=== PATIENT | female | born 1970 | race African-American/Black ===

== ENCOUNTER 2016-06-25 12:39 | Inpatient (IN) | payer MEDICARE, MEDICAID ==
[~2016-06-25] VITALS: Ht 160 cm; Wt 97.6 kg
[~2016-06-25 12:39] MED LIST: ACYC200C PO; CODE118S2 PO; COLC0.6T66 PO; FLUO-124 PO; OXYC-100 PO
[2016-06-25] MEDS ORDERED: IPRATROPIUM BROMIDE (0.02%) 0.5MG/2.5ML NEB HHN STA (13:41)
[2016-06-25] MEDS ORDERED: METHYLPREDNISOLONE SOD SUCC 125 MG/2 ML VIAL IV STA (13:41)
[2016-06-25] MEDS ORDERED: ALBUTEROL (0.083%) 2.5MG/3ML NEB HHN STA (13:41)
[2016-06-25] MEDS ORDERED: FUROSEMIDE 40MG/4ML VIAL IV STA (13:41)
[2016-06-25 14:08] LABS: BG BASE EXCESS -5.1 mmol/L (-2.0-2.0); BG CARBOXYHEMOGLOBIN 6.3 % (0.5-1.5); BG DEOXYHEMOGLOBIN 6.4 % (0.0-5.0); BG FRACTION INSPIRED OXYGEN 21; BG HCO3 ACT 18.3 mmol/L (22.0-26.0); BG METHEMOGLOBIN 0.1 % (0.0-1.5); BG OXYGEN SATURATION 93.2 % (92.0-98.5); BG OXYHEMOGLOBIN 87.2 % (94.0-97.0); BG PCO2 28.7 mmHg (35.0-45.0); BG PH 7.423 (7.350-7.450); BG PO2 66.8 mmHg (75.0-100.0); BG SAMPLE SITE RIGHT RADIAL; BG TOTAL HEMOGLOBIN 10.6 g/dL (12.0-18.0); BG VENT MODE ROOM AIR
[2016-06-25 14:27] LABS: ALBUMIN 3.7 g/dL (3.4-5.0); CALCIUM 8.7 mg/dL (8.5-10.1); CHLORIDE 101 mEq/L (98-107); INDEX HEMOLYSI 1 (1-3); INDEX ICTERIC 1 (1-4); INDEX LIPEMIC 1 (1-3)
[2016-06-25 14:30] LABS: INR 1.1; PARTIAL THROMBOPLASTIN TIME 27.1 sec (24.0-34.0); PROTHROMBIN TIME 11.3 sec
[2016-06-25 14:35] LABS: ALANINE AMINOTRANSFERASE 15 IU/L (13-61); ANION GAP 17; CARBON DIOXIDE 22 mEq/L (21-32); NT PRO B-TYPE NATRIURETIC PEP 48 pg/mL (5-125); TROPONIN I < 0.02 ng/mL (0.00-0.04); eGFR > 60 mL/min (>60)
[2016-06-25 14:39] LABS: UREA NITROGEN BLOOD 3 mg/dL (7-21)
[2016-06-25 14:40] LABS: LACTIC ACID 3.4 mmol/L (0.4-2.0)
[2016-06-25 14:46] LABS: BASOPHILS % 0.3 % (0.0-2.0); DIFFERENTIAL COMMENT 0; EOSINOPHILS % 0.7 % (0.0-5.0); HEMATOCRIT. 31.6 % (36.0-48.0); MEAN CORPUSCULAR HEMOGLOBIN 23.1 pg (28.0-32.0); MEAN CORPUSCULAR HGB CONC 31.8 g/dL (31.0-37.0); MEAN CORPUSCULAR VOLUME 72.8 fL (81.0-99.0); MEAN PLATELET VOLUME 7.9 fl (7.4-10.4); MONOCYTES % 3.7 % (2.0-8.0); NEUTROPHILS % 73.3 % (40.0-76.0); PLATELET 273 x1000/uL (130-400); RED BLOOD CELL COUNT 4.34 mill/uL (4.2-5.4); RED CELL DISTRIBUTION WIDTH 20.3 % (11.6-14.6); WHITE BLOOD COUNT 7.9 x1000/uL (4.5-11.0)
[2016-06-25] MEDS ORDERED: CEFTRIAXONE 1 G PREMIX 50 ML IV ONE (15:30)
[2016-06-25] MEDS ORDERED: AZITHROMYCIN 500 MG in DEXT 5% WATER 250 ML IV SCH (15:30)
[2016-06-25] MEDS ORDERED: AZITHROMYCIN 500MG in DEXTROSE 5% WATER 250ML IV NR (17:00)
[2016-06-25] MEDS ORDERED: KETOROLAC 30MG/ML VIAL IV ONE (19:45)
[2016-06-25] MEDS ORDERED: IPRATROPIUM/ALBUTEROL 0.5-3(2.5)MG/3ML NEB HHN PRN (21:30)
[2016-06-25] MEDS ORDERED: ONDANSETRON HCL 4MG/2ML VIAL IV PRN (21:30)
[2016-06-25] MEDS ORDERED: ACETAMINOPHEN 325MG TABLET PO PRN (21:30)
[2016-06-25] MEDS: LEVOFLOXACIN 500MG PREMIX 100 ML IV SCH (23:00)
[2016-06-25] MEDS: METHYLPREDNISOLONE SOD SUCC 40 MG/ML VIAL IV SCH (23:32)
[2016-06-26] MEDS: METHYLPREDNISOLONE SOD SUCC 40 MG/ML VIAL IV SCH ×4 (06:07→23:30)
[2016-06-26] MEDS: HYDROCODONE/ACETAMINOPHEN 5/325MG TABLET PO PRN ×2 (06:12→21:48)
[2016-06-26 06:34] LABS: ANION GAP 16; CALCIUM 8.9 mg/dL (8.5-10.1); CARBON DIOXIDE 24 mEq/L (21-32); CHLORIDE 102 mEq/L (98-107); INDEX HEMOLYSI 1 (1-3); INDEX ICTERIC 1 (1-4); INDEX LIPEMIC 1 (1-3); UREA NITROGEN BLOOD 9 mg/dL (7-21); eGFR > 60 mL/min (>60)
[2016-06-26 06:48] LABS: HEMATOCRIT. 31.1 % (36.0-48.0); HEMOGLOBIN. 9.6 g/dL (12.0-16.0); MEAN CORPUSCULAR HEMOGLOBIN 22.5 pg (28.0-32.0); MEAN CORPUSCULAR HGB CONC 30.9 g/dL (31.0-37.0); MEAN CORPUSCULAR VOLUME 72.8 fL (81.0-99.0); MEAN PLATELET VOLUME 7.8 fl (7.4-10.4); PLATELET 270 x1000/uL (130-400); RED BLOOD CELL COUNT 4.27 mill/uL (4.2-5.4); RED CELL DISTRIBUTION WIDTH 19.4 % (11.6-14.6); WHITE BLOOD COUNT 8.5 x1000/uL (4.5-11.0)
[2016-06-26 07:24] LABS: DIFFERENTIAL COMMENT 1
[2016-06-26] MEDS: OMEPRAZOLE 20MG CAPSULE EXTENDED RELEASE PO SCH (08:27)
[2016-06-26 13:33] LABS: NUCLEATED RED BLOOD CELLS 1 /100 WBC
[2016-06-26 13:34] LABS: ANISOCYTOSIS 1+; PLATELET ESTIMATE NORMAL; TARGET CELLS 1+
[2016-06-26] MEDS: LEVOFLOXACIN 500MG PREMIX 100 ML IV SCH (23:31)
[2016-06-27] MEDS: METHYLPREDNISOLONE SOD SUCC 40 MG/ML VIAL IV SCH ×2 (06:00→21:28)
[2016-06-27] MEDS: OMEPRAZOLE 20MG CAPSULE EXTENDED RELEASE PO SCH (09:10)
[2016-06-27] MEDS: HYDROCODONE/ACETAMINOPHEN 5/325MG TABLET PO PRN (14:33)
[2016-06-27 16:43] LABS: *AMPHETAMINES SCREEN URINE NEGATIVE (NEGATIVE); *BARBITURATES SCREEN URINE NEGATIVE (NEGATIVE); *BENZODIAZEPINES SCREEN URINE NEGATIVE (NEGATIVE); CANNABINOID URINE SCREEN NEGATIVE (NEGATIVE); ECSTASY MDMA SCREEN URINE NEGATIVE (NEGATIVE); METHADONE URINE SCREEN NEGATIVE (NEGATIVE); PHENCYCLIDINE URINE SCREEN NEGATIVE (NEGATIVE)
[2016-06-27 16:48] LABS: *COCAINE SCREEN URINE PRESUMTIVE POSITIVE (NEGATIVE); OPIATES URINE SCREEN PRESUMTIVE POSITIVE (NEGATIVE)
[2016-06-27] MEDS: LEVOFLOXACIN 500MG PREMIX 100 ML IV SCH (21:29)
[2016-06-28] MEDS: METHYLPREDNISOLONE SOD SUCC 40 MG/ML VIAL IV SCH (08:03)
[2016-06-28] MEDS: OMEPRAZOLE 20MG CAPSULE EXTENDED RELEASE PO SCH (08:03)
[2016-06-28 12:00] VITALS: BP 107/73
== END 2016-06-28 12:00 | disposition left against medical advice (07) | DRG 193 ==
LOC: ER 12:43 → 7WST 15:43
PROVIDERS: ADMIT Hospitalist; ATTEND Hospitalist
DX: J18.9 Pneumonia, unspecified organism (principal); J96.01 Acute respiratory failure with hypoxia; J45.901 Unspecified asthma with (acute) exacerbation; E87.2 Acidosis; I11.0 Hypertensive heart disease with heart failure; I50.9 Heart failure, unspecified; F20.9 Schizophrenia, unspecified; F31.9 Bipolar disorder, unspecified; D64.9 Anemia, unspecified; M19.90 Unspecified osteoarthritis, unspecified site; G89.29 Other chronic pain; M54.9 Dorsalgia, unspecified; Z88.0 Allergy status to penicillin; Z88.5 Allergy status to narcotic agent; Z88.6 Allergy status to analgesic agent; Z87.891 Personal history of nicotine dependence
CPT/HCPCS: 36415; 36600; 71010; 80048; 80053; 80305; 82375; 82805; 83605; 83880; 84484; 85025; 85610; 85730; 87040; 93005; 94640; 96365; 96366; 96367; 96375; 99285; J0456; J0696; J1885; J1940; J1956; J2920; J2930; J7050; J7060; J7611; J7620

== ENCOUNTER 2018-11-28 17:05 | Inpatient (IN) | payer MEDICARE, MEDICAID ==
[~2018-11-28] VITALS: Ht 160 cm; Wt 103.4 kg
[2018-11-28 18:12] LABS: HEMATOCRIT. 31.2 % (36.0-48.0); HEMOGLOBIN. 10.2 g/dL (12.0-16.0); MEAN CORPUSCULAR HEMOGLOBIN 25.9 pg (28.0-32.0); MEAN CORPUSCULAR VOLUME 79.4 fL (81.0-99.0); PLATELET 296 x1000/uL (130-400); RED BLOOD CELL COUNT 3.92 mill/uL (4.2-5.4); RED CELL DISTRIBUTION WIDTH 18.6 % (11.6-14.6)
[2018-11-28 18:15] LABS: CHLORIDE 108 mEq/L (98-107)
[2018-11-28 18:23] LABS: PLATELET ESTIMATE NORMAL
[2018-11-28] MEDS ORDERED: LEVOFLOXACIN 750MG PREMIX 150 ML IV NR (19:00)
[2018-11-28] MEDS ORDERED: KETOROLAC 15MG/ML VIAL IV ONE (19:15)
[2018-11-28] MEDS ORDERED: DOCUSATE SODIUM 100MG CAPSULE PO PRN (20:45)
[2018-11-28] MEDS ORDERED: MAGNESIUM/ALUMINUM HYDROXIDE/SIMETHICONE 30ML UDC PO PRN (20:45)
[2018-11-28] MEDS ORDERED: GUAIFENESIN 200MG/10ML SUGAR FREE UDC PO PRN (20:45)
[2018-11-28] MEDS ORDERED: ACETAMINOPHEN 325MG TABLET PO PRN (20:45)
[2018-11-28] MEDS ORDERED: IPRATROPIUM/ALBUTEROL 0.5-3(2.5)MG/3ML NEB HHN PRN (20:45)
[2018-11-28] MEDS ORDERED: CLONIDINE 0.1MG TABLET PO PRN (20:45)
[2018-11-28] MEDS ORDERED: LORAZEPAM 2MG/ML CPJ IV PRN (20:45)
[2018-11-28] MEDS ORDERED: DIPHENHYDRAMINE 50MG/ML VIAL IV PRN (20:45)
[2018-11-28] MEDS ORDERED: ONDANSETRON HCL 4MG/2ML INJ IV PRN (20:45)
[2018-11-28] MEDS ORDERED: NA PHOS,M-B/NA PHOS,DI-BA ENEMA 118ML PR PRN (20:45)
[2018-11-28 22:00] VITALS: BP 124/89
[2018-11-28 22:27] VITALS: BP 124/89
[2018-11-28] MEDS: HYDROMORPHONE HCL/PF 2MG/ML CPJ IV PRN (23:29)
[2018-11-28] MEDS: SODIUM CHLORIDE 0.9% INJ 3ML FLUSH IVF SCH (23:37)
[2018-11-29] VITALS: BP 101/62
[2018-11-29 04:00] VITALS: BP 110/79
[2018-11-29] MEDS: HYDROMORPHONE HCL/PF 2MG/ML CPJ IV PRN ×5 (04:47→21:10)
[2018-11-29] MEDS: SODIUM CHLORIDE 0.9% INJ 3ML FLUSH IVF SCH ×3 (05:58→21:09)
[2018-11-29 07:19] LABS: CHLORIDE 108 mEq/L (98-107)
[2018-11-29 07:23] LABS: HEMATOCRIT. 28.4 % (36.0-48.0); HEMOGLOBIN. 9.1 g/dL (12.0-16.0); MEAN CORPUSCULAR VOLUME 81.4 fL (81.0-99.0); MEAN PLATELET VOLUME 8.5 fl (7.4-10.4); PLATELET 262 x1000/uL (130-400); RED BLOOD CELL COUNT 3.49 mill/uL (4.2-5.4)
[2018-11-29 07:28] LABS: CREATINE KINASE 313 IU/L (26-192)
[2018-11-29 07:30] LABS: CREATINE KINASE MB FRACTION < 1.0 ng/mL (0.5-3.6)
[2018-11-29 08:00] VITALS: BP 121/79
[2018-11-29] MEDS: ASPIRIN 81MG EC TABLET PO SCH (08:37)
[2018-11-29] MEDS: ENOXAPARIN 30MG/0.3ML SYR SUBCUT SCH ×2 (08:38→21:09)
[2018-11-29 11:50] VITALS: BP 102/60
[2018-11-29 13:21] LABS: PLATELET ESTIMATE NORMAL
[2018-11-29] MEDS: METHYLPREDNISOLONE SOD SUCC 40 MG/ML VIAL IV SCH (15:25)
[2018-11-29 16:00] VITALS: BP 113/77
[2018-11-29 17:08] LABS: *AMPHETAMINES SCREEN URINE NEGATIVE (NEGATIVE); *BARBITURATES SCREEN URINE NEGATIVE (NEGATIVE); CANNABINOID URINE SCREEN NEGATIVE (NEGATIVE); METHADONE URINE SCREEN NEGATIVE (NEGATIVE); PHENCYCLIDINE URINE SCREEN NEGATIVE (NEGATIVE)
[2018-11-29 17:09] LABS: *BENZODIAZEPINES SCREEN URINE NEGATIVE (NEGATIVE)
[2018-11-29 17:13] LABS: *COCAINE SCREEN URINE PRESUMTIVE POSITIVE (NEGATIVE); OPIATES URINE SCREEN PRESUMTIVE POSITIVE (NEGATIVE)
[2018-11-29] MEDS ORDERED: LEVOFLOXACIN 500MG PREMIX 100 ML IV SCH ×2 (19:00→21:00)
[2018-11-29 20:00] VITALS: BP 120/83
[2018-11-29] MEDS: GUAIFENESIN 600MG ER TABLET PO SCH (21:09)
[2018-11-29] MEDS: IPRATROPIUM/ALBUTEROL 0.5-3(2.5)MG/3ML NEB HHN SCH (22:23)
[2018-11-29] MEDS: BUDESONIDE 0.5MG/2ML NEB HHN SCH (22:23)
[2018-11-30] VITALS: BP 118/71
[2018-11-30] MEDS: IPRATROPIUM/ALBUTEROL 0.5-3(2.5)MG/3ML NEB HHN SCH ×4 (01:07→12:14)
[2018-11-30] MEDS: HYDROMORPHONE HCL/PF 2MG/ML CPJ IV PRN ×3 (01:14→08:09)
[2018-11-30 04:00] VITALS: BP 108/62
[2018-11-30] MEDS: SODIUM CHLORIDE 0.9% INJ 3ML FLUSH IVF SCH ×2 (05:25→14:25)
[2018-11-30 08:00] VITALS: BP 129/84
[2018-11-30] MEDS: GUAIFENESIN 600MG ER TABLET PO SCH (08:08)
[2018-11-30] MEDS: ASPIRIN 81MG EC TABLET PO SCH (08:08)
[2018-11-30] MEDS: ENOXAPARIN 30MG/0.3ML SYR SUBCUT SCH (08:08)
[2018-11-30] MEDS: METHYLPREDNISOLONE SOD SUCC 40 MG/ML VIAL IV SCH (08:08)
[2018-11-30] MEDS: BUDESONIDE 0.5MG/2ML NEB HHN SCH (08:48)
[2018-11-30 12:00] VITALS: BP 111/58
[2018-11-30 13:30] VITALS: BP 111/58
[2018-11-30] MEDS ORDERED: LEVOFLOXACIN 500MG TABLET PO SCH (21:00)
== END 2018-11-30 15:00 | disposition home or self-care (01) | DRG 917 ==
LOC: ER 19:40 → 5WST 20:10 → EDBEDREQ 20:12 → EDBEDREQTM 20:12 → ENRESERV 21:09
PROVIDERS: ADMIT Internal Medicine; ATTEND Internal Medicine
DX: T40.5X1A Poisoning by cocaine, accidental (unintentional), initial encounter (principal); J96.00 Acute respiratory failure, unspecified whether with hypoxia or hypercapnia; J18.9 Pneumonia, unspecified organism; E46 Unspecified protein-calorie malnutrition; J44.0 Chronic obstructive pulmonary disease with (acute) lower respiratory infection; J44.1 Chronic obstructive pulmonary disease with (acute) exacerbation; J68.0 Bronchitis and pneumonitis due to chemicals, gases, fumes and vapors; I50.42 Chronic combined systolic (congestive) and diastolic (congestive) heart failure; Z68.41 Body mass index [BMI] 40.0-44.9, adult; T40.601A Poisoning by unspecified narcotics, accidental (unintentional), initial encounter; F14.90 Cocaine use, unspecified, uncomplicated; F20.9 Schizophrenia, unspecified; F31.9 Bipolar disorder, unspecified; I11.0 Hypertensive heart disease with heart failure; Z79.899 Other long term (current) drug therapy; Z88.0 Allergy status to penicillin; Z88.5 Allergy status to narcotic agent; Y92.89 Other specified places as the place of occurrence of the external cause
CPT/HCPCS: 36415; 71045; 80305; 82550; 82553; 83880; 84484; 93005; 93970; 94640; 96374; 99285; C1893; J1170; J1650; J1885; J1956; J2920; J7620; J7626

== ENCOUNTER 2019-04-15 02:01 | Inpatient (IN) | payer MEDICARE, MEDICAID ==
[~2019-04-15] VITALS: Ht 167.6 cm; Wt 96.2 kg
[2019-04-15] VITALS (8 sets, daily range): BP systolic 87–159; BP diastolic 54–103
[~2019-04-15 02:01] MED LIST changes: -FLUO-124 PO; +FLUO20CA39 PO
[2019-04-15 02:30] LABS: BASOPHILS % 0.9 % (0.0-2.0); EOSINOPHILS % 2.4 % (0.0-5.0); HEMATOCRIT. 28.2 % (36.0-48.0); HEMOGLOBIN. 8.9 g/dL (12.0-16.0); LYMPHOCYTES % 7.6 % (20.0-50.0); MEAN CORPUSCULAR HEMOGLOBIN 23.6 pg (28.0-32.0); MEAN CORPUSCULAR VOLUME 74.8 fL (81.0-99.0); MEAN PLATELET VOLUME 7.6 fl (7.4-10.4); MONOCYTES % 4.7 % (2.0-8.0); NEUTROPHILS % 84.4 % (40.0-76.0); PLATELET 251 x1000/uL (130-400); RED BLOOD CELL COUNT 3.77 mill/uL (4.2-5.4); RED CELL DISTRIBUTION WIDTH 19.1 % (11.6-14.6)
[2019-04-15] MEDS ORDERED: FUROSEMIDE 40MG/4ML VIAL IV ONE (02:30)
[2019-04-15 02:35] LABS: CHLORIDE 108 mEq/L (98-107)
[2019-04-15] MEDS ORDERED: ONDANSETRON HCL 4MG/2ML INJ IV ONE (04:00)
[2019-04-15] MEDS ORDERED: IOHEXOL-350 100 ML BOTTLE ONE (07:15)
[2019-04-15] MEDS ORDERED: NITROGLYCERIN 0.4MG TABLET SL SL PRN (08:30)
[2019-04-15] MEDS ORDERED: CLONIDINE 0.1MG TABLET PO PRN (08:30)
[2019-04-15] MEDS ORDERED: MORPHINE SULFATE 2 MG/ML CPJ (NOT FOR IM USE) IV PRN (08:30)
[2019-04-15] MEDS ORDERED: ONDANSETRON HCL 4MG/2ML INJ IV PRN (08:30)
[2019-04-15] MEDS ORDERED: GUAIFENESIN 200MG/10ML SUGAR FREE UDC PO PRN (08:30)
[2019-04-15] MEDS ORDERED: LORAZEPAM 0.5MG TABLET PO PRN (08:30)
[2019-04-15] MEDS ORDERED: HYDROCODONE/ACETAMINOPHEN 5/325MG TABLET PO PRN (08:30)
[2019-04-15 09:14] LABS: *AMPHETAMINES SCREEN URINE NEGATIVE (NEGATIVE); *BARBITURATES SCREEN URINE NEGATIVE (NEGATIVE); *BENZODIAZEPINES SCREEN URINE NEGATIVE (NEGATIVE)
[2019-04-15 09:15] LABS: CANNABINOID URINE SCREEN NEGATIVE (NEGATIVE); METHADONE URINE SCREEN NEGATIVE (NEGATIVE); OPIATES URINE SCREEN NEGATIVE (NEGATIVE); PHENCYCLIDINE URINE SCREEN NEGATIVE (NEGATIVE)
[2019-04-15 09:17] LABS: *COCAINE SCREEN URINE NEGATIVE (NEGATIVE)
[2019-04-15] MEDS: IPRATROPIUM/ALBUTEROL 0.5-3(2.5)MG/3ML NEB HHN PRN ×2 (10:15→12:36)
[2019-04-15] MEDS: FUROSEMIDE 40MG/4ML VIAL IV SCH ×2 (11:40→17:15)
[2019-04-15] MEDS: ACETAMINOPHEN 325MG TABLET PO PRN ×3 (11:40→23:38)
[2019-04-15 14:03] LABS: BG BASE EXCESS -1.9 mmol/L (-2.0-2.0); BG CARBOXYHEMOGLOBIN 0.3 % (0.5-1.5); BG DEOXYHEMOGLOBIN 4.6 % (0.0-5.0); BG FRACTION INSPIRED OXYGEN 36; BG HCO3 ACT 21.9 mmol/L (22.0-26.0); BG OXYGEN SATURATION 95.4 % (92.0-98.5); BG OXYHEMOGLOBIN 95.1 % (94.0-97.0); BG PCO2 33.7 mmHg (35.0-45.0); BG PO2 77.3 mmHg (75.0-100.0); BG SAMPLE SITE RIGHT RADIAL; BG TOTAL HEMOGLOBIN 10.2 g/dL (12.0-18.0); BG VENT MODE NASAL CANNULA
[2019-04-15] MEDS: ACETAMINOPHEN WITH CODEINE 300/30MG TABLET PO PRN ×2 (18:30→23:39)
[2019-04-15] MEDS: BUDESONIDE 0.5MG/2ML NEB HHN SCH (20:30)
[2019-04-15] MEDS: IPRATROPIUM/ALBUTEROL 0.5-3(2.5)MG/3ML NEB HHN SCH (20:30)
[2019-04-15] MEDS: GUAIFENESIN 600MG ER TABLET PO SCH (23:38)
[2019-04-16] VITALS (12 sets, daily range): BP systolic 107–161; BP diastolic 64–102
[2019-04-16] MEDS: IPRATROPIUM/ALBUTEROL 0.5-3(2.5)MG/3ML NEB HHN SCH ×4 (01:39→20:54)
[2019-04-16 06:22] LABS: VITAMIN B12 SERUM 266 pg/mL (211-911)
[2019-04-16 06:29] LABS: BASOPHILS % 0.6 % (0.0-2.0); EOSINOPHILS % 2.9 % (0.0-5.0); HEMATOCRIT. 30.8 % (36.0-48.0); HEMOGLOBIN. 9.8 g/dL (12.0-16.0); LYMPHOCYTES % 17.6 % (20.0-50.0); MEAN CORPUSCULAR HEMOGLOBIN 23.8 pg (28.0-32.0); MEAN PLATELET VOLUME 8.4 fl (7.4-10.4); MONOCYTES % 5.2 % (2.0-8.0); NEUTROPHILS % 73.7 % (40.0-76.0); PLATELET 218 x1000/uL (130-400); RED CELL DISTRIBUTION WIDTH 19.3 % (11.6-14.6)
[2019-04-16] MEDS: BUDESONIDE 0.5MG/2ML NEB HHN SCH ×2 (07:44→20:54)
[2019-04-16] MEDS: ACETAMINOPHEN 325MG TABLET PO PRN (08:10)
[2019-04-16] MEDS: GUAIFENESIN 600MG ER TABLET PO SCH ×2 (08:10→21:42)
[2019-04-16] MEDS: FUROSEMIDE 40MG/4ML VIAL IV SCH ×2 (08:10→17:20)
[2019-04-16] MEDS: ACETAMINOPHEN WITH CODEINE 300/30MG TABLET PO PRN (17:05)
[2019-04-17] VITALS (12 sets, daily range): BP systolic 100–126; BP diastolic 43–83
[2019-04-17] MEDS: ACETAMINOPHEN WITH CODEINE 300/30MG TABLET PO PRN ×2 (00:36→17:30)
[2019-04-17] MEDS: ACETAMINOPHEN 325MG TABLET PO PRN ×2 (00:54→09:19)
[2019-04-17] MEDS: IPRATROPIUM/ALBUTEROL 0.5-3(2.5)MG/3ML NEB HHN SCH ×4 (01:01→21:46)
[2019-04-17] MEDS: FUROSEMIDE 40MG/4ML VIAL IV SCH ×2 (06:38→17:20)
[2019-04-17 06:41] LABS: BASOPHILS % 0.5 % (0.0-2.0); EOSINOPHILS % 3.8 % (0.0-5.0); HEMATOCRIT. 29.6 % (36.0-48.0); HEMOGLOBIN. 9.3 g/dL (12.0-16.0); LYMPHOCYTES % 20.9 % (20.0-50.0); MEAN CORPUSCULAR HEMOGLOBIN 23.4 pg (28.0-32.0); MEAN CORPUSCULAR VOLUME 74.4 fL (81.0-99.0); MEAN PLATELET VOLUME 8.7 fl (7.4-10.4); MONOCYTES % 5.3 % (2.0-8.0); NEUTROPHILS % 69.5 % (40.0-76.0); PLATELET 197 x1000/uL (130-400); RED BLOOD CELL COUNT 3.97 mill/uL (4.2-5.4); RED CELL DISTRIBUTION WIDTH 18.5 % (11.6-14.6)
[2019-04-17 06:43] LABS: CHLORIDE 97 mEq/L (98-107)
[2019-04-17] MEDS: BUDESONIDE 0.5MG/2ML NEB HHN SCH ×2 (08:30→21:45)
[2019-04-17] MEDS: GUAIFENESIN 600MG ER TABLET PO SCH ×2 (09:19→21:26)
[2019-04-17] MEDS ORDERED: POTASSIUM CHLORIDE 20MEQ TABLET SR PO NR (09:30)
[2019-04-17] MEDS: FERROUS SULFATE 325MG TABLET PO SCH ×2 (13:00→18:00)
[2019-04-17 15:42] LABS: CLARITY URINE CLEAR (CLEAR); COLOR URINE YELLOW (YELLOW); KETONES URINE NEGATIVE (NEGATIVE); LEUKOCYTE ESTERASE URINE NEGATIVE (NEGATIVE); NITRITE URINE NEGATIVE (NEGATIVE); OCCULT BLOOD URINE NEGATIVE (NEGATIVE); PROTEIN URINE NEGATIVE (NEGATIVE); SPECIFIC GRAVITY URINE 1.011 (1.005-1.030); UROBILINOGEN URINE 0.2 E.U./dL (0.2-1.0)
[2019-04-17] MEDS ORDERED: LEVOFLOXACIN 500MG TABLET PO NR (17:00)
[2019-04-18] VITALS (11 sets, daily range): BP systolic 94–136; BP diastolic 48–95
[2019-04-18] MEDS: IPRATROPIUM/ALBUTEROL 0.5-3(2.5)MG/3ML NEB HHN SCH ×3 (03:52→12:00)
[2019-04-18] MEDS: ACETAMINOPHEN 325MG TABLET PO PRN (04:19)
[2019-04-18] MEDS: FUROSEMIDE 40MG/4ML VIAL IV SCH (06:20)
[2019-04-18] MEDS: BUDESONIDE 0.5MG/2ML NEB HHN SCH (07:56)
[2019-04-18] MEDS: GUAIFENESIN 600MG ER TABLET PO SCH (08:25)
[2019-04-18] MEDS: FERROUS SULFATE 325MG TABLET PO SCH (08:25)
[2019-04-18] MEDS ORDERED: LEVOFLOXACIN 500MG TABLET PO SCH (11:00)
[2019-04-18] MEDS ORDERED: GUAI-641 MT (11:56)
[2019-04-18] MEDS ORDERED: FERR325T23 PO (11:56)
[2019-04-18] MEDS ORDERED: FLUO20CA39 PO (11:56)
[2019-04-18] MEDS ORDERED: COLC0.6T66 PO (11:56)
[2019-04-18] MEDS ORDERED: ALBU18HF2 IH (11:56)
[2019-04-18] MEDS ORDERED: LEVO500T2 MT (12:01)
[2019-04-18] MEDS ORDERED: IRON SUCROSE COMPLEX 100 MG/5 ML ML IV NR (13:00)
== END 2019-04-18 17:30 | disposition home or self-care (01) | DRG 189 ==
LOC: ER 02:01 → 5EST 03:56 → ENRESERV 07:40 → 5EST 10:26
PROVIDERS: ADMIT Internal Medicine; ATTEND Internal Medicine
PROC: 5A09357 Assistance with Respiratory Ventilation, Less than 24 Consecutive Hours, Continuous Positive Airway Pressure (ICD-10-PCS; principal; 2019-04-15)
DX: J96.00 Acute respiratory failure, unspecified whether with hypoxia or hypercapnia (principal); J44.1 Chronic obstructive pulmonary disease with (acute) exacerbation; J06.9 Acute upper respiratory infection, unspecified; F20.9 Schizophrenia, unspecified; F31.9 Bipolar disorder, unspecified; E87.6 Hypokalemia; D50.9 Iron deficiency anemia, unspecified; I50.9 Heart failure, unspecified; F17.210 Nicotine dependence, cigarettes, uncomplicated; I11.0 Hypertensive heart disease with heart failure; Z91.14 Patient's other noncompliance with medication regimen; Z91.19 Patient's noncompliance with other medical treatment and regimen; Z88.0 Allergy status to penicillin; Z88.6 Allergy status to analgesic agent; Z79.899 Other long term (current) drug therapy; Z71.6 Tobacco abuse counseling
CPT/HCPCS: 36415; 36600; 71045; 71275; 80048; 80053; 80305; 81003; 82375; 82607; 82728; 82805; 83540; 83550; 83605; 83880; 84145; 84443; 84484; 85025; 85379; 87070; 93005; 93306; 93970; 94640; 94660; 99291; J1940; J2405; J7626; Q9967

== ENCOUNTER 2020-02-27 12:44 | Inpatient (IN) | payer BC, MEDICAID ==
[~2020-02-27] VITALS: Ht 162.6 cm; Wt 95.8 kg
[~2020-02-27 12:44] MED LIST changes: +ALBU18HF2 IH; +FERR325T23 PO; +GUAI-641 MT; +LEVO500T2 MT
[2020-02-27] MEDS ORDERED: IPRATROPIUM BROMIDE (0.02%) 0.5MG/2.5ML NEB HHN STA (13:16)
[2020-02-27] MEDS ORDERED: ALBUTEROL (0.083%) 2.5MG/3ML NEB HHN STA (13:16)
[2020-02-27] MEDS ORDERED: METHYLPREDNISOLONE SOD SUCC 125 MG/2 ML VIAL IV STA (13:16)
[2020-02-27] MEDS ORDERED: MAGNESIUM 2 G PREMIX 50 ML IV STA (13:16)
[2020-02-27 13:23] LABS: BASOPHILS % 0.3 % (0.0-2.0); HEMATOCRIT. 39.8 % (36.0-48.0); HEMOGLOBIN. 13.4 g/dL (12.0-16.0); MEAN CORPUSCULAR HEMOGLOBIN 31.9 pg (28.0-32.0); MEAN CORPUSCULAR VOLUME 94.7 fL (81.0-99.0); MEAN PLATELET VOLUME 8.9 fl (7.4-10.4); MONOCYTES % 3.8 % (2.0-8.0); NEUTROPHILS % 79.9 % (40.0-76.0); PLATELET 131 x1000/uL (130-400); RED CELL DISTRIBUTION WIDTH 17.3 % (11.6-14.6)
[2020-02-27 13:29] LABS: CHLORIDE 102 mEq/L (98-107)
[2020-02-27] MEDS ORDERED: FUROSEMIDE 20MG/2ML VIAL IVP ONE (13:30)
[2020-02-27 14:50] LABS: BG DEOXYHEMOGLOBIN 0.5 % (0.0-5.0); BG FRACTION INSPIRED OXYGEN 100; BG HCO3 ACT 23.5 mmol/L (22.0-26.0); BG METHEMOGLOBIN 0.3 % (0.0-1.5); BG OXYGEN SATURATION 99.5 % (92.0-98.5); BG OXYHEMOGLOBIN 94.2 % (94.0-97.0); BG PCO2 38.7 mmHg (35.0-45.0); BG PH 7.402 (7.350-7.450); BG PO2 422.8 mmHg (75.0-100.0); BG SAMPLE SITE LEFT RADIAL; BG TOTAL HEMOGLOBIN 14.7 g/dL (12.0-18.0); BG TOTAL RESPIRATORY RATE 46 b/min; BG VENT MODE MASK - BIPAP
[2020-02-27 14:55] LABS: HCG SCREEN NEGATIVE
[2020-02-27] MEDS ORDERED: CLONIDINE 0.1MG TABLET PO PRN (17:15)
[2020-02-27] MEDS ORDERED: DIPHENHYDRAMINE 50MG/ML VIAL IV PRN (17:15)
[2020-02-27] MEDS ORDERED: ONDANSETRON HCL 4MG/2ML INJ IV PRN (17:15)
[2020-02-27] MEDS: ENOXAPARIN 40MG/0.4ML SYR SUBCUT SCH (18:00)
[2020-02-27] MEDS ORDERED: AZITHROMYCIN 500 MG in DEXT 5% WATER 250 ML IV SCH (18:00)
[2020-02-27] MEDS: METHYLPREDNISOLONE SOD SUCC 125 MG/2 ML VIAL IV SCH ×2 (18:00→23:21)
[2020-02-27 22:00] VITALS: BP 128/74
[2020-02-28] VITALS (11 sets, daily range): BP systolic 112–150; BP diastolic 52–96
[2020-02-28] MEDS: METHYLPREDNISOLONE SOD SUCC 125 MG/2 ML VIAL IV SCH ×4 (05:13→23:24)
[2020-02-28] MEDS: ACETAMINOPHEN 325MG TABLET PO PRN ×2 (05:14→21:08)
[2020-02-28 07:53] LABS: CHLORIDE 103 mEq/L (98-107)
[2020-02-28 07:59] LABS: BASOPHILS % 0.1 % (0.0-2.0); HEMATOCRIT. 38.1 % (36.0-48.0); HEMOGLOBIN. 12.6 g/dL (12.0-16.0); LYMPHOCYTES % 15.2 % (20.0-50.0); MEAN CORPUSCULAR HEMOGLOBIN 31.7 pg (28.0-32.0); MEAN CORPUSCULAR VOLUME 96.2 fL (81.0-99.0); MEAN PLATELET VOLUME 9.1 fl (7.4-10.4); MONOCYTES % 1.7 % (2.0-8.0); PLATELET 125 x1000/uL (130-400); RED BLOOD CELL COUNT 3.96 mill/uL (4.2-5.4); RED CELL DISTRIBUTION WIDTH 16.5 % (11.6-14.6)
[2020-02-28 08:04] LABS: LDL CHOLESTEROL 96 mg/dL (5-100)
[2020-02-28 08:06] LABS: HDL CHOLESTEROL 73 mg/dL (40-59)
[2020-02-28] MEDS ORDERED: ALBUTEROL (0.083%) 2.5MG/3ML NEB HHN PRN (09:45)
[2020-02-28 13:35] LABS: CLARITY URINE CLEAR (CLEAR); COLOR URINE YELLOW (YELLOW); KETONES URINE TRACE (NEGATIVE); LEUKOCYTE ESTERASE URINE NEGATIVE (NEGATIVE); NITRITE URINE NEGATIVE (NEGATIVE); OCCULT BLOOD URINE NEGATIVE (NEGATIVE); PROTEIN URINE 1+ (NEGATIVE); SPECIFIC GRAVITY URINE 1.028 (1.005-1.030)
[2020-02-28 14:41] LABS: *COCAINE SCREEN URINE PRESUMTIVE POSITIVE (NEGATIVE); CANNABINOID URINE SCREEN NEGATIVE (NEGATIVE); METHADONE URINE SCREEN NEGATIVE (NEGATIVE); OPIATES URINE SCREEN NEGATIVE (NEGATIVE); PHENCYCLIDINE URINE SCREEN NEGATIVE (NEGATIVE)
[2020-02-28 14:42] LABS: *AMPHETAMINES SCREEN URINE NEGATIVE (NEGATIVE); *BARBITURATES SCREEN URINE NEGATIVE (NEGATIVE)
[2020-02-28 14:44] LABS: *BENZODIAZEPINES SCREEN URINE NEGATIVE (NEGATIVE)
[2020-02-28] MEDS ORDERED: LORAZEPAM 2MG/ML CPJ IV PRN (15:45)
[2020-02-28] MEDS: THIAMINE HCL 100MG TABLET PO SCH (16:00)
[2020-02-28] MEDS ORDERED: LEVOFLOXACIN 250MG TABLET PO SCH (16:00)
[2020-02-28] MEDS: FLUOXETINE HCL 20MG CAPSULE PO SCH (17:02)
[2020-02-28] MEDS: FOLIC ACID 1MG TABLET PO SCH (17:02)
[2020-02-28] MEDS: MULTIVITAMINS,THER W-MINERALS TABLET PO SCH (17:02)
[2020-02-28] MEDS: ENOXAPARIN 40MG/0.4ML SYR SUBCUT SCH (17:04)
[2020-02-28] MEDS: ALBUTEROL 6.7GM HFA INHALER ORI SCH ×2 (17:11→22:00)
[2020-02-28] MEDS ORDERED: AZITHROMYCIN 500 MG in DEXT 5% WATER 250 ML IV SCH (18:00)
[2020-02-28] MEDS: CHLORDIAZEPOXIDE 5 MG CAPSULE PO SCH (21:00)
[2020-02-29] VITALS: BP 134/78
[2020-02-29] MEDS: ALBUTEROL 6.7GM HFA INHALER ORI SCH (03:59)
[2020-02-29 04:00] VITALS: BP 141/84
[2020-02-29] MEDS: CHLORDIAZEPOXIDE 5 MG CAPSULE PO SCH (05:13)
[2020-02-29] MEDS: METHYLPREDNISOLONE SOD SUCC 125 MG/2 ML VIAL IV SCH (05:13)
[2020-02-29 07:31] LABS: CHLORIDE 105 mEq/L (98-107)
[2020-02-29 07:41] LABS: BASOPHILS % 0.2 % (0.0-2.0); HEMATOCRIT. 38.6 % (36.0-48.0); HEMOGLOBIN. 12.6 g/dL (12.0-16.0); LYMPHOCYTES % 8.3 % (20.0-50.0); MEAN CORPUSCULAR HEMOGLOBIN 31.5 pg (28.0-32.0); MEAN CORPUSCULAR VOLUME 96.4 fL (81.0-99.0); MEAN PLATELET VOLUME 9.3 fl (7.4-10.4); MONOCYTES % 2.5 % (2.0-8.0); PLATELET 145 x1000/uL (130-400); RED BLOOD CELL COUNT 4.01 mill/uL (4.2-5.4); RED CELL DISTRIBUTION WIDTH 16.2 % (11.6-14.6)
[2020-02-29] MEDS ORDERED: ENOXAPARIN 30MG/0.3ML SYR SUBCUT SCH (09:00)
[2020-02-29] MEDS: MULTIVITAMINS,THER W-MINERALS TABLET PO SCH (09:03)
[2020-02-29] MEDS: THIAMINE HCL 100MG TABLET PO SCH (09:03)
[2020-02-29] MEDS: FOLIC ACID 1MG TABLET PO SCH (09:03)
[2020-02-29] MEDS: FLUOXETINE HCL 20MG CAPSULE PO SCH (09:03)
== END 2020-02-29 14:54 | disposition left against medical advice (07) | DRG 205 ==
LOC: ER 13:00 → EDBEDREQ 13:25 → 3WST 16:12 → EDBEDREQ 16:14 → ENRESERV 19:18 → 7WST 02-28 14:01
PROVIDERS: ADMIT Internal Medicine; ATTEND Internal Medicine
PROC: 5A09357 Assistance with Respiratory Ventilation, Less than 24 Consecutive Hours, Continuous Positive Airway Pressure (ICD-10-PCS; principal; 2020-02-27)
DX: J68.0 Bronchitis and pneumonitis due to chemicals, gases, fumes and vapors (principal); J96.01 Acute respiratory failure with hypoxia; D69.6 Thrombocytopenia, unspecified; F10.10 Alcohol abuse, uncomplicated; F14.90 Cocaine use, unspecified, uncomplicated; F17.210 Nicotine dependence, cigarettes, uncomplicated; Z53.29 Procedure and treatment not carried out because of patient's decision for other reasons; F20.9 Schizophrenia, unspecified; F31.9 Bipolar disorder, unspecified; I11.0 Hypertensive heart disease with heart failure; M10.9 Gout, unspecified; I50.9 Heart failure, unspecified; Z82.49 Family history of ischemic heart disease and other diseases of the circulatory system; Z88.0 Allergy status to penicillin; Z88.5 Allergy status to narcotic agent; Z79.899 Other long term (current) drug therapy; Z79.51 Long term (current) use of inhaled steroids; Z88.8 Allergy status to other drugs, medicaments and biological substances; Y92.89 Other specified places as the place of occurrence of the external cause; Z72.89 Other problems related to lifestyle; G25.89 Other specified extrapyramidal and movement disorders; Z20.822 Contact with and (suspected) exposure to COVID-19
CPT/HCPCS: 36415; 36600; 71045; 80048; 80053; 80061; 80305; 81003; 82375; 82805; 83880; 84439; 84443; 84481; 84484; 84703; 85025; 85379; 87635; 93005; 93970; 99291; J0456; J1650; J1940; J2060; J2930; J3475; J7040; J7060

== ENCOUNTER 2024-05-01 07:59 | Emergency (ER) | payer MEDICARE, MEDICAID ==
[~2024-05-01] VITALS: Ht 170.2 cm; Wt 100.0 kg
[~2024-05-01 07:59] MED LIST changes: -ACYC200C PO; +ACYC200C31 PO; +FLUO-413 PO; -FLUO20CA39 PO
[2024-05-01 08:00] VITALS: O2SAT 99
[2024-05-01] MEDS ORDERED: ACET-3800 MT (09:17)
[2024-05-01] MEDS ORDERED: LIDO700A30 TP (09:17)
[2024-05-01] MEDS: ACETAMINOPHEN 325MG TABLET PO ONE (09:25)
[2024-05-01 09:49] VITALS: BP 144/88; PULSE 84; RESP 18; TEMP 37.1; O2SAT 99
== END 2024-05-01 09:55 | disposition home or self-care (01) ==
LOC: ER 07:59
DX: M54.50 Low back pain, unspecified (principal); M25.562 Pain in left knee; M25.561 Pain in right knee; F31.9 Bipolar disorder, unspecified; I10 Essential (primary) hypertension; J44.9 Chronic obstructive pulmonary disease, unspecified; Z88.8 Allergy status to other drugs, medicaments and biological substances; Z88.0 Allergy status to penicillin; Z88.5 Allergy status to narcotic agent; Z79.899 Other long term (current) drug therapy; Z98.890 Other specified postprocedural states
CPT/HCPCS: 72131; 73562; 99284

== ENCOUNTER 2024-10-02 19:31 | Emergency (ER) | payer MEDICARE, MEDICAID ==
[~2024-10-02] VITALS: Ht 160 cm; Wt 95.0 kg
[~2024-10-02 19:31] MED LIST changes: +ACET-3800 MT; +AMLO5TAB88 PO; -LEVO500T2 MT; +LIDO700A30 TP; +PRED5TAB PO
[2024-10-02 19:53] VITALS: O2SAT 96
[2024-10-02] MEDS ORDERED: LEVO750T68 MT (21:02)
[2024-10-02 21:12] VITALS: BP 123/99; PULSE 100; RESP 18; TEMP 36.8; O2SAT 96
== END 2024-10-02 21:14 | disposition home or self-care (01) ==
LOC: ER 19:31
DX: L03.213 Periorbital cellulitis (principal); Z88.8 Allergy status to other drugs, medicaments and biological substances; J44.89 Other specified chronic obstructive pulmonary disease; J45.909 Unspecified asthma, uncomplicated; I11.0 Hypertensive heart disease with heart failure; I50.9 Heart failure, unspecified; F31.9 Bipolar disorder, unspecified; Z88.5 Allergy status to narcotic agent; Z88.0 Allergy status to penicillin; Z79.899 Other long term (current) drug therapy; Z86.59 Personal history of other mental and behavioral disorders; Z98.890 Other specified postprocedural states
CPT/HCPCS: 99283